=== PATIENT | male | born 1990 | race African-American/Black ===

== ENCOUNTER 2018-03-19 20:56 | Emergency (ER) | payer OTHER ==
[~2018-03-19] VITALS: Ht 172.7 cm; Wt 68.1 kg
[2018-03-19 21:55] LABS: HEMATOCRIT 37.6 % (38.0-50.0); HEMOGLOBIN 12.4 G/DL (12.5-16.6); MCH 28.5 PG (29.0-34.0); MCV 86.4 FL (86-99); PLATELET COUNT 256 K/uL (156-360); RBC DIS.WIDTH-SD 44.1 % (39-53); RED BLOOD COUNT 4.35 M/uL (4.00-5.50); WHITE BLOOD COUNT 8.8 K/uL (4.1-10.2)
[2018-03-19 22:04] LABS: CHLORIDE 108 mEq/L (99-109); POTASSIUM 3.6 mEq/L (3.7-5.4); SODIUM 143 mEq/L (136-147)
[2018-03-19 22:05] LABS: GLUCOSE 91 mg/dL (70-99)
[2018-03-19 22:09] LABS: CREATININE 1.1 mg/dL (0.6-1.3); GFR ESTIMATE (CALCULATED) > 59 mL/min/ (58.99-99999); SERUM ETHYL ALCOHOL < 10 mg/dL
[2018-03-19 22:10] LABS: UREA NITROGEN (BUN) 17 mg/dL (9-23)
[2018-03-19 22:58] VITALS: BP 99/52
== END 2018-03-19 22:59 | disposition left against medical advice (07) ==
LOC: EME → EDBD 20:56 → EME 22:59
PROVIDERS: Emergency Medicine
DX: F31.9 Bipolar disorder, unspecified (principal); Z04.6 Encounter for general psychiatric examination, requested by authority; Z87.891 Personal history of nicotine dependence
CPT/HCPCS: 80048; 85027; 99281; 99285; G0480; J7030